=== PATIENT | male | born 1945 | race Caucasian/White ===

== ENCOUNTER 2017-10-02 05:25 | Day surgery (SDC) | payer MEDICARE, OTHER ==
[2017-10-01 15:18] LABS: HEMATOCRIT 40.5 % (42.0-54.0); HEMOGLOBIN 14.4 g/dL (13.5-17.5); MCH 33.3 pg (26.0-34.0); MCHC 35.6 g/dL (31.0-37.0); MCV 93.5 fL (80.0-100.0); MEAN PLATELET VOLUME 10.2 fL (7.4-10.4); RBC 4.33 10x6/uL (4.20-6.10); RDW 12.5 % (11.5-14.5); WBC 7.4 10x3/uL (4.8-10.8)
[~2017-10-02] VITALS: Ht 177.8 cm; Wt 86.6 kg
--- NOTE | ~2017-10-02 | OP ---
PATIENT NAME: JAMAL RECINOS MEDICAL RECORD: [id number] :[address] ADMISSION DATE: SURGEON: BARRY SHEPHERD MD DATE OF OPERATION: 10/02/2017 SURGEON: Barry Shepherd MD ANESTHESIA: MAC. ANESTHESIOLOGIST: Barry Butler MD PREOPERATIVE DIAGNOSIS: Elevated PSA 4.3. PROCEDURE: Transrectal ultrasound and prostate biopsy. FINDINGS: A 30 gram prostate, no hypoechoic areas. BLOOD LOSS: None. CLINICAL HISTORY: This is a 72-year-old male who was found to have an elevated PSA of 4.3. He has a positive family history of prostate cancer with one uncle having prostate cancer. Digital rectal examination revealed a small size prostate with no nodules. He comes today to have a transrectal ultrasound and prostate biopsy performed. He is not allergic to any medications. 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 DESCRIPTION OF PROCEDURE: The patient was given IV sedation. He was then placed into dorsal lithotomy position and prepped. The transrectal ultrasound probe was placed and we obtained prostate size measurements. Prostate size was estimated at 30 grams. We then performed sextant biopsies at least 3 cores from each sextant. Once all the biopsies were obtained, the procedure was terminated. The patient will be going home today. I will see him in followup next week to review the pathology results with him. TRANSINT:[id number] Voice Confirmation ID: [id number] DOCUMENT ID: [id number] BARRY SHEPHERD MD at 1356 CC: [id number] DICTATION DATE: 10/02/17921 CIRCULAR DISTRIBUTOR: 10/02/17 1028 [facility] 10/02/[address] [address]
[~2017-10-02 05:25] MED LIST: BENICAR20 MG PO; LIPITOR10 MG PO
[2017-10-02] MEDS ORDERED: NEXIUM20 MG PO (07:03)
[2017-10-02] MEDS ORDERED: BACTRIM DS TABL1 TAB PO (07:03)
[2017-10-02 07:06] VITALS: BP 119/75; Ht 177.8 cm; Wt 86.6 kg
== END 2017-10-02 10:25 | disposition home or self-care (01) ==
LOC: D.OPS 05:25 → D.PAN 10:00 → D.OPS 10:00 → D.PAN 10:15 → D.OPS 10:15
PROVIDERS: Anesthesiology
DX: R97.20 Elevated prostate specific antigen [PSA] (principal); Z01.812 Encounter for preprocedural laboratory examination

== ENCOUNTER → 2019-07-15 07:53 | Outpatient (CLI) | payer MEDICARE, OTHER ==
[2017-10-02 07:06] VITALS: BMI 27.4
[~2019-07-15 07:53] MED LIST changes: +BACTRIM DS TABL1 TAB PO; +NEXIUM20 MG PO
== END | disposition home or self-care (01) ==
LOC: D.HCCECHO 07-08 08:30
PROVIDERS: ATTEND Internal Medicine Cardiovascular Disease
DX: I10 Essential (primary) hypertension (principal); I20.9 Angina pectoris, unspecified

== ENCOUNTER 2019-08-11 10:58 | Outpatient (CLI) | payer MEDICARE, OTHER ==
[~2019-08-11] VITALS: Ht 177.8 cm; Wt 90.9 kg
--- NOTE | ~2019-08-11 | HEMODYNAMI ---
PATIENT:JAMAL RECINOS MEDICAL RECORD: [id number] : 41 LOCATION:[facility] ADMISSION DATE: 08/11/19 Generatedon:08/11/201914:03 Patient name: JAMAL RECINOS Patient #: [id number] SSN: [id number] : 1945 Date of study: 08/11/2019 Page: Of Hemodynamic Procedure Report Patient Data Patient Demographics Procedure consent was obtained First Name: JAMAL Gender: Male Last Name: GRISEL : 1945 [facility] Initial: [place] Age: 74 year(s) Patient #: [id number] Race: Unknown SSN: [id number] Additional ID: [id number] Contact details [address]: [address] [place] [address] State: [place] City: [place] Zip code: [address] Past Medical History Performed procedures and imaging results Date Procedure Procedure Results Comments Stress testing Positive->Intermediate with SPECT MPI risk Allergies: No known allergies Admission Admission Data Admission Date: 08/11/2019 Admission Time: 10:58 Arrival Date: 08/11/2019 Arrival Time: 0:00 Insurance Payor: Medicare Height (in.): 70 BSA: 2.09 (m2) Height (cm.): 177.8 BMI: 28.79 (kg/m2) Weight (lbs.): 200.62 Weight (kg.): 91 Lab Results Lab Result Date: 08/11/2019 Lab Result Time: 0:00 Biochemistry Name Units Result Min Max BUN mg/dl 26 --(----)-* 7 18 Creatinine mg/dl 1.6 --(----)-* 0.6 1.3 eGFR ml/min 45 *-(----)-- 90 120 NONAFRICAN CBC Name Units Result Min Max Hematocrit % 41.7 -*(----)-- 42 54 Hemoglobin g/dl 14.8 --(-*--)-- 13.5 17.5 Procedure Procedure Types Cath Procedure Diagnostic Procedure [facility] w/Coronaries Sedation Charges Moderate Sedation up to 15 minutes PCI Procedure Coronary Stent Coronary Stent Initial Hemochron ACT Test Procedure Description Procedure Date Procedure Date: 08/11/2019 Procedure Start Time: 13:25 Procedure End Time: 14:00 Procedure Staff Name Function Greg Colunga MD Performing Physician Angela Thomas RT Monitor Kierra Cardenas RT Monitor Yolanda Lara RT Scrub Tino Aguilar RT Scrub Ernie Rodriguez RN Nurse Procedure Data Cath Procedure Fluoroscopy Diagnostic fluoroscopy Total fluoroscopy Time: 0 time: 0 min min Diagnostic fluoroscopy Total fluoroscopy dose: 932 dose: 932 mGy mGy Contrast Material Contrast Material Type Amount (ml) Isovue 370 125 Entry Location Entry Primary Successful Side Size Upsize Upsize Entry Closure Succes sful Closure Location (Fr) 1 (Fr) 2 (Fr) Remarks Device Remarks Femoral Right 5 Fr 6 Fr Exoseal artery Short Estimated blood loss: 10 ml Diagnostic catheters Device Type Used For End Catheter Placement MULTIPACK Pigtail 5 Fr Procedure catheter MULTIPACK JL 4.0 5Fr Procedure catheter DIAGNOSTIC 3DRC 5Fr Procedure catheter ([id number]) Procedure Complications No complications Procedure Medications Medication Administration Route Dosage Oxygen etCO2 Nasal cannula 2 l/min Lidocaine 2% added to field 20 Heparin Flush Bag added to field 2 bags (1000units/500ml NS) 0.9% NaCl I.V. 100 ml/hr Versed I.V. 2 mg Fentanyl I.V. 50 mcg Versed I.V. 1 mg Fentanyl I.V. 50 mcg Fentanyl I.V. 50 mcg Heparin Bolus I.V. 9000 units Plavix P.O. 600 mg Hemodynamics Rest BSA: 2.09 (m2) HGB: 14.8 (g/dl) O2 Consumption: Estimated: 240.04 (ml/min) O2 Co nsumption indexed: Estimated:114.85 (ml/min/m) Heart Rate: 70 (bpm) Pressure Samples Time Site Value (mmHg) Purpose Heart Use Rate(bpm) 13:30 LV 116/0,16 Snapshot 81 13:31 AO 109/65(86) Pullback 80 13:31 LV 101/0,7 Pullback 80 Gradients Valve Time Site 1 Site 2 Mean SEP/DFP Peak To Heart Use (mmHg) (sec/min) Peak Rate (mmHg) (bpm) Aortic 13:31 LV AO 0 6 0 80 101/0,7 109/65(86) Calculations Valve P-P Mean Valve Index Valve Source Name Gradient Area Flow (cm2) Aortic 0 0 0 0 Snapshots Pre Cath Intra NCS Post Cath Vital Signs Time Heart Resp SPO2 etCO2 NIBP (mmHg) Rhythm Pain Sedation Rate (ipm) (%) (mmHg) Status Level (bpm) 13:13:38 71 20 99 0 122/88(109) NSR 0 (11) 10(A) , No pain 13:17:44 70 17 100 39.4 121/87(103) NSR 0 (11) 10(A) , No pain 13:21:51 77 16 100 37.9 119/84(101) NSR 0 (11) 10(A) , No pain 13:25:59 75 18 98 12.1 113/78(95) NSR 0 (11) 10(A) , No pain 13:30:07 71 15 94 0 99/72(91) NSR 0 (11) 9(A) , No pain 13:34:09 75 14 97 21.9 108/75(96) NSR 0 (11) 9(A) , No pain 13:38:13 87 15 99 1.5 117/82(94) NSR 0 (11) 9(A) , No pain 13:42:18 85 17 98 0 108/83(102) NSR 0 (11) 9(A) , No pain 13:46:24 83 18 99 0 110/74(95) NSR 0 (11) 9(A) , No pain 13:50:30 85 18 99 0 101/75(95) NSR 0 (11) 9(A) , No pain 13:54:32 81 19 98 34.8 98/78(91) NSR 0 (11) 10(A) , No pain 13:58:33 88 18 98 34.8 109/76(94) NSR 0 (11) 10(A) , No pain Medications Time Medication Route Dose Verified Delivered Reason Notes Effectiveness by by 13:18:31 Oxygen etCO2 2 Greg Buffie used for Nasal l/min Keanu Rodriguez window treatment installer cannula 13:18:39 Lidocaine 2% added 20ml Greg Greg for local to vial Keanu Colunga MD anesthetic field 13:18:45 Heparin Flush added 2 Greg Greg used for Bag to bags Keanu Colunga MD procedure (1000units/500ml field NS) 13:18:54 0.9% NaCl I.V. 100 Greg Buffie Per physician ml/hr Keanu Rodriguez RN 13:22:35 Versed I.V. 2 mg Greg Buffie for sedation Keanu Rodriguez RN 13:22:41 Fentanyl I.V. 50 Greg Buffie for sedation mcg Keanu Rodriguez RN 13:30:46 Versed I.V. 1 mg Greg Buffie for sedation Keanu Rodriguez RN 13:30:50 Fentanyl I.V. 50 Greg Buffie for sedation mcg Keanu Rodriguez RN 13:41:20 Fentanyl I.V. 50 Greg Buffie for sedation mcg Keanu Rodriguez RN 13:45:47 Heparin Bolus I.V. 9000 Greg Buffie for verif ied units Keanu Rodriguez RN anticoagulation with dr colunga 13:55:06 Plavix P.O. 600 Greg Buffie for mg Keanu Rodriguez RN antiplatelet therapy Procedure Log Time Note 12:51:07 Informed consent obtained and on chart 12:52:14 Procedure Status Elective Heart Cath (OP). 12:52:16 Time tracking: Regular hours (M-F 7:00 - 5:00) 12:52:18 Plan of Care:Hemodynamics will remain stable., Cardiac rhythm will remain stable., Comfort level will be maintained., Respiratory function will remain adequate., Patient/ family verbilizes understanding of procedure., Procedure tolerated without complication., Recovers from procedure without complications.. 12:53:15 H&P Date Dictated: 07/27/2019 Within 30 days and on chart., H&P Addendum completed by physician on day of procedure. (MUST COMPLETE FOR ALL OUTPATIENTS). 12:53:22 Patient allergic to No known allergies 12:53:59 Patient Weight : 200.62 lbs 12:54:12 Patient Height : 70 inches 12:54:16 Arrival Date: 08/11/2019 12:00:00 AM 12:55:18 Stress Test: yes; abnormal INFERIOR 12:56:17 Lab Result : BUN 26 mg/dl 12:56:17 Lab Result : Hemoglobin 14.8 g/dl 12:56:17 Lab Result : Hematocrit 41.7 % 12:56:17 Lab Result : Creatinine 1.6 mg/dl 12:56:17 Lab Result : eGFR NONAFRICAN 45 ml/min 12:58:31 Insurance Payor : Medicare 12:59:59 Yolanda GRIFFIN(R) (CV) sent for patient. Start room use. 13:01:01 Risk of Mortality: .3 13:01:03 Risk of blood transfusion: .1 13:01:05 Risk of TESS: 1.6 13:06:09 Patient received from Pre/Post Procedure Room to CCL 1 Alert and oriented. Tansferred to table in Supine position. 13:06:10 Warm blankets applied, and giovani hugger turned on for patient comfort. 13:06:10 Correct patient and procedure confirmed by team. 13:06:11 ECG and BP/O2 sat monitors applied to patient. 13:10:15 Is the patient allergic to Iodine/contrast media? No. 13:10:16 Was the patient premedicated? Yes 13:10:18 Is patient on blood thinner?No 13:10:20 Patient diabetic? No. 13:10:25 If diabetic: On Metformin? N/A 13:10:26 ----Pre-sedation anethsthesia assessment.---- 13:10:29 Previous problem with sedation/anesthesia? No ? 13:10:30 Snore? Yes 13:10:33 Sleep apnea? No 13:10:34 Deviated septum? No 13:10:36 Opens mouth fully? Yes 13:10:37 Sticks out tongue? Yes 13:10:43 Airway obstruction? No ? 13:10:45 Dentures? No ? 13:11:04 IV patent on arrival in left hand with 0.9% NaCl at O. 13:11:08 Patient pain scale 0/10 ?. 13:11:17 Right groin area was prepped per Dr. Colunga's request with chlora-prep and draped in sterile fashion 13:11:18 Alarms reviewed by R. N. 13:11:19 Sharps counted by scrub and verified by R.N. 13:11:26 Vital chart was started 13:11:28 Pre-procedure instructions explained to patient. 13:11:29 Pre-procedure instructions explained to patient. 13:11:31 Family in waiting room. 13:11:38 Patient NPO since Midnight. 13:12:01 Full Disclosure recording started 13:13:36 Baseline sample Acquired. 13:13:41 Rhythm: sinus rhythm 13:13:49 Use device set Femoral Dx 13:13:50 ACIST Syringe (99025) opened to sterile field. 13:13:51 Bag Decanter (2002S) opened to sterile field. 13:13:52 Medline Cath Pack ([id number]) opened to sterile field. 13:13:54 ACIST Hand Control (35047) opened to sterile field. 13:13:54 ACIST Manifold (63587) opened to sterile field. 13:13:55 DIAGNOSTIC Multipack 5Fr catheter set (SG2363) opened to sterile field. 13:13:56 Tegaderm 4 x 4 (1626W) opened to sterile field. 13:13:58 SHEATH 5FR [place] (QRU027) opened to sterile field. 13:13:58 EMERALD Guide Wire (594-012) opened to sterile field. 13:18:31 Oxygen 2 l/min etCO2 Nasal cannula was administered by Ernie Rodriguez RN; used for procedure; Verbal order read back and verified. 13:18:39 Lidocaine 2% 20ml vial added to field was administered by Greg Colunga MD; for local anesthetic; Verbal order read back and verified. 13:18:45 Heparin Flush Bag (1000units/500ml NS) 2 bags added to field was administered by Greg Colunga MD; used for procedure; Verbal order read back and verified. 13:18:54 0.9% NaCl 100 ml/hr I.V. was administered by Ernie Rodriguez RN; Per physician; Verbal order read back and verified. 13:20:15 --------ALL STOP TIME OUT------ 13:20:16 Final Timeout: patient, procedure, and site verified with staff and physician. All members of the team are in agreement. 13:20:18 Right groin site verified by team. 13:20:23 Fire Safety Assessment: A--An alcohol-based skin anteseptic being used preoperatively., C--Open oxygen or nitrous oxide is being used., D--An ESU, laser, or fiber-optic light is being used. 13:20:27 Physical assessment completed. ASA score P 2 - A patient with mild systemic disease as per Greg Colunga MD. 13:20:32 3a) 45-59 Moderately reduced kidney function. 13:20:35 Maximum allowable contrast dose (3.7 X eGFR X 0.75)125 ml. 13:20:40 Sedation plan: IV Moderate Sedation Medication:Versed, Fentanyl 13:22:12 Zero performed for pressure channel P1 13:22:35 Versed 2 mg I.V. was administered by Ernie Rodriguez RN; for sedation; Verbal order read back and verified. 13::41 Fentanyl 50 mcg I.V. was administered by Ernie Rodriguez RN; for sedation; Verbal order read back and verified. 13:23:32 Zero performed for pressure channel P1 13:25:30 Procedure started. 13:25:51 Local anesthetic to right femoral artery with Lidocaine 2% by Greg Colunga MD.INITIAL ACCESS ONLY 13:28:37 A 5 Fr sheath was inserted into the Right Femoral artery 13:29:44 A MULTIPACK Pigtail 5 Fr catheter was advanced over the wire and used for Procedure. 13:29:47 LV gram done using SHANKS 13:30:00 Injector settings: Ml/sec: 5, Volume: 15, 13:30:46 Versed 1 mg I.V. was administered by Ernie Rodriguez RN; for sedation; Verbal order read back and verified. 13:30:50 Fentanyl 50 mcg I.V. was administered by Ernie Rodriguez RN; for sedation; Verbal order read back and verified. 13:30:55 LV hemodynamics recorded. 13:31:04 EF : 55 % 13:31:55 PIGTAIL PULLDOWN FOR AORTOGRAM 13:32:05 Abdominal Aortagram was performed. 13:32:23 Catheter exchanged over wire. 13:32:54 A MULTIPACK JL 4.0 5Fr catheter was advanced over the wire and used for Procedure. 13:33:37 LCA angiography performed. 13:35:18 Catheter exchanged over wire. 13:35:46 A DIAGNOSTIC 3DRC 5Fr catheter ([id number]) was advanced over the wire and used for Procedure. 13:36:52 RCA angiography performed. 13:37:38 ACCDominant side:Right 13:38:27 Catheter removed. 13:38:58 Proceeding to intervention. 13:39:45 SHEATH 6FR [place] (IUO197) opened to sterile field. 13:39:46 INFLATOR Merit BasixCompak (RC6628) opened to sterile field. 13:39:46 TUBING High Pressure Extension Tubing (Keanu) ([id number]) opened to sterile field. 13:39:47 GUIDE 6FR XBLAD 3.5 catheter ([id number]) opened to sterile field. 13:40:04 Sheath upsized to a 6 Fr Short. 13:40:12 6 Fr XBLAD 3.5 guide catheter was inserted over the wire 13:41:20 Fentanyl 50 mcg I.V. was administered by Ernei Rodriguez RN; for sedation; Verbal order read back and verified. 13:45:27 Pre PCI Site: [place] pLAD has 75% stenosis. 13:45:37 ASAHI MINAMO 300 wire advanced. 13:45:47 Heparin Bolus 9000 units I.V. was administered by Ernie Rodriguez RN; for anticoagulation; verified with dr colunga Verbal order read back and verified. 13:47:27 Wire advanced across lesion. 13:51:49 Place stent Inflation Number: 1 A DANICA OTW 3.0 x 12 stent ([id number]) was prepped and advanced across the Prox LAD . The stent was deployed at 12 ALEX for 0:00 (min:sec) . 13:51:58 Wire removed. 13:51:59 Guide catheter removed. 13:52:03 Stent catheter was removed intact over wire. 13:52:26 EXOSEAL 6Fr (EX600) opened to sterile field. 13:52:37 Sheath removed intact; hemostasis achieved with Exoseal to the Right Femoral artery. 13:53:32 Contrast amount:Isovue 370 125ml. 13:53:35 Maximum allowable dose exceeded? No. 13:53:42 Procedure ended.(Physican Out) 13:53:56 Fluoroscopy time 00.00 minutes. 13:54:01 Flurop Dose total: 932 13:54:01 Fluoroscopy dose: 932 mGy 13:54:10 Dose Area Product 32822 mGy/cm. 13:54:15 Sharps counted by scrub and verified by R.N. 13:54:24 Post-op/insertion site Right Femoral artery dressed using a 4 x 4 and Tegaderm. 13:54:30 Post right femoral artery:stable, soft, clean and dry 13:54:31 Post Procedure Pulses reassessed and unchanged 13:54:35 Post procedure: right dorsailis pedis pulse 2+ Normal; easily identifiable; not easily obliterated. 13:54:38 Post-procedure physical assessment completed. ASA score P 2 - A patient with mild systemic disease as per Greg Colunga MD. 13:54:41 Post procedure rhythm: unchanged. 13:54:45 Estimated blood loss: 10 ml 13:54:47 Post procedure instruction explained to patient.Patient verbalizes understanding. 13:54:48 Patient needs reinforcement of post procedure teaching. 13:55:06 Plavix 600 mg P.O. was administered by Ernie Rodriguez RN; for antiplatelet therapy; Verbal order read back and verified. 13:55:38 Procedure type changed to Cath procedure, Diagnostic procedure, LHC, LHC w/Coronaries, Sedation Charges, Moderate Sedation up to 15 minutes, PCI procedure, Coronary Stent, Coronary Stent Initial, Hemochron ACT Test 13:56:53 C Findings: MVD- PCI performed (see procedure note) 13:57:04 Procedure Complication : No complications 13:57:14 Operative report dictated upon procedure completion. 13:57:15 See physician's report for complete and final results. 13:57:17 Report given to Pre/Post Procedure Room. 13:57:26 Patient transfered to Pre/Post Procedure Room with Stretcher. 13:58:31 Procedure and supply charges have been captured, reviewed, submitted and are correct. 13:59:14 ACT drawn and resulted at OUT OF RANGE seconds. (normal therapeutic range 180-240 seconds). 14:00:19 Vital chart was stopped 14:00:50 Procedure ended. 14:00:50 Full Disclosure recording stopped 14:00:57 ACC-PCI Only Patient was given prescriptions, or instructed by Greg Colunga MD to start/continue the following medications upon discharge: Plavix 14:02:30 End room use (Document Last) 14:02:43 End room use (Document Last) 14:02:59 End room use (Document Last) Intervention Summary Intervention Notes Time ActionType Lesion and Equipment Action# Pressure Duration Attributes Used 13:51:[address] stent Prox LAD DANICA OTW 3.0 1 12 00:00 x 12 stent ([id number]) Device Usage Item Name Manufacture Quantity Catalog Hospital Part Current Mini mal Lot# / Number Charge Number Stock Stock Serial# Code ACIST Syringe Acist 1 57874 951164 996586 540389 20 (33187) Medical Systems Inc Bag Decanter Microtek 1 2001S 569468 34406 227993 5 (2001S) Medical Inc. Medline Cath Medline 1 [id number] 884457 54490 654104 5 Pack ([id number]) ACIST Hand Acist 1 41728 413806 794835 755801 5 Control Medical (08617) Systems Inc ACIST Acist 1 27660 760266 714949 530105 5 Manifold Medical (49423) Systems Inc DIAGNOSTIC Cardinal 1 JQ3556 900109 66325 703448 30 Multipack 5Fr Health catheter set (PT7584) Tegaderm 4 x 3M 1 1626W 100587 457186 192158 5 4 (1626W) SHEATH 5FR Terumo 1 YTV899 982923 728550 631724 5 [place] (IZZ445) EMERALD Guide Cardinal 1 502-455 695209 633820 218796 5 Wire Health (502-455) MULTIPACK Cardinal 1 454361 5 Pigtail 5 Fr Health catheter MULTIPACK JL Cardinal 1 359645 5 4.0 5Fr Health catheter DIAGNOSTIC Cardinal 1 [id number] 188658 061754 248904 9 3DRC 5Fr Health catheter (703691Q) SHEATH 6FR Terumo 1 FLN357 564903 020124 973809 40 [place] (SWL397) INFLATOR Merit 1 CD6912 325000 412299 545340 15 Merit Medical BasixCompak (EH9646) TUBING High Merit 1 [id number] 576805 28418 706413 10 Pressure Medical Extension Tubing (Colunga) (ZU2438Q) GUIDE 6FR Cardinal 1 [id number] 888763 431627 199806 10 XBLAD 3.5 Health catheter (78570952) DANICA OTW 3.0 Medtronic 1 [id number] 328999 4973260 721417 5 [id number] x 12 stent ([id number]) EXOSEAL 6Fr Cardinal 1 EX600 714210 984709 953802 10 (EX600) Health Signature Audit [place] Stage Time Signature Unsigned Intra-Procedure 08/11/2019 Kierra Cardenas 2:02:43 PM RT(R) Intra-Procedure 08/11/2019 Buffie Rodriguez RN 2:02:59 PM Intra-Procedure 08/11/2019 Greg Colunga MD 2:03:18 PM [facility] [address] [place] [address]
[2019-08-11] MEDS ORDERED: LIPITOR20 MG PO (11:11)
[2019-08-11] MEDS ORDERED: PROTONIX40 MG PO (11:12)
[2019-08-11 11:27] VITALS: BP 120/82; Ht 177.8 cm; Wt 90.9 kg
[2019-08-11 11:37] LABS: BASOPHILS 0.4 % (0-2); EOSINOPHILS 4.8 % (0-7); HEMATOCRIT 41.7 % (42.0-54.0); HEMOGLOBIN 14.8 g/dL (13.5-17.5); IMMATURE GRANULOCYTES 0.4 % (0-5); LYMPHOCYTES 25.9 % (15-50); MCH 33.4 pg (26.0-34.0); MCHC 35.5 g/dL (31.0-37.0); MCV 94.1 fL (80.0-100.0); MEAN PLATELET VOLUME 10.3 fL (7.4-10.4); MONOCYTES 9.6 % (2-11); NEUTROPHILS 58.9 % (40-80); PLATELET COUNT 211 10x3/uL (130-400); RBC 4.43 10x6/uL (4.20-6.10); RDW 12.9 % (11.5-14.5); WBC 7.5 10x3/uL (4.8-10.8)
[2019-08-11 11:46] LABS: ANION GAP 15.1 mmol/L (8-16); CALCIUM 8.8 mg/dL (8.5-10.1); CARBON DIOXIDE 24.8 mmol/L (21.0-32.0); CHOL - HDL RATIO 3.3 ratio (2.3-4.9); CREATININE - SERUM 1.6 mg/dL (0.6-1.3); POTASSIUM - SERUM 3.9 mmol/L (3.5-5.1)
--- NOTE | 2019-08-11 14:10 | NUR ---
PATIENT ARRIVED TO ROOM 6, PLACED ON CM. VSS. RIGHT GROIN DRESSING IS CDI, NO S/S OF BLEEDING OR HEMATOMA. WILL CONTINUE TO MONITOR.
[2019-08-11] MEDS ORDERED: PLAVIX75 MG PO (14:15)
[2019-08-11] MEDS ORDERED: BAYER CHEWABLE81 MG PO (14:15)
--- NOTE | 2019-08-11 14:25 | NUR ---
PATIENT AWAKE, PHYSICIAN AT BEDSIDE. VSS ON 2L NC. RIGHT GROIN DRESSING IS CDI, NO S/S OF BLEEDING OR HEMATOMA. NO C/O PAIN, NUMBNESS, OR TINGLING. PRESENT AT BEDSIDE. NO N/V. TOLERATING PO FLUIDS.
--- NOTE | 2019-08-11 14:55 | NUR ---
PATIENT RESTING, SPOUSE AT BEDSIDE. VSS ON 1L NC. RIGHT GROIN DRESSING IS CDI, NO S/S OF BLEEDING OR HEMATOMA. NO C/O PAIN, NUMBNESS, OR TINGLING.
--- NOTE | 2019-08-11 15:10 | NUR ---
PATIENT RESTING, VSS ON 1L NC. RIGHT GROIN DRESSING IS CDI, NO S/S OF BLEEDING OR HEMATOMA.
--- NOTE | 2019-08-11 15:40 | NUR ---
PATIENT RESTING, VSS ON ROOM AIR. RIGHT GROIN DRESSING IS CDI, NO S/S OF BLEEDING OR HEMATOMA. NO C/O PAIN, NUMBNESS, OR TINGLING. NO N/V.
--- NOTE | 2019-08-11 16:10 | NUR ---
PATIENT RESTING, SPOUSE PRESENT AT BEDSIDE. VSS ON ROOM AIR. NO C/O PAIN, NUMBNESS, OR TINGLING. RIGHT GROIN DRESSING IS CDI, NO S/S OF BLEEDING OR HEMATOMA.
--- NOTE | 2019-08-11 16:40 | NUR ---
PATIENT RESTING, SPOUSE AT BEDSIDE. VSS ON ROOM AIR. NO C/O PAIN, NUMBNESS, OR TINGLING. NO N/V. RIGHT GROIN DRESSING IS CDI, NO S/S OF BLEEDING OR HEMATOMA.
--- NOTE | 2019-08-11 17:10 | NUR ---
HEAD OF BED ELEVATED TO 45 DEGREES. RIGHT GROIN DRESSING IS CDI, NO S/S OF BLEEDING OR HEMATOMA. NO C/O PAIN, NUMBNESS, OR TINGLING. PATIENT TOLERATING PO FLUIDS, NO N/V. VSS ON ROOM AIR. PATIENT VOIDED WITHOUT DIFFICULTY.
--- NOTE | 2019-08-11 17:40 | NUR ---
HEAD OF BED AT 90 DEGREES. RIGHT GROIN DRESSING IS CDI, NO S/S OF BLEEDING OR HEMATOMA. NO C/O PAIN, NUMBNESS, OR TINGLING. VSS ON ROOM AIR. NO N/V. WRITTEN AND VERBAL DISCHARGE INSTRUCTIONS AND MEDICATION EDUCATION GIVEN TO PATIENT AND SPOUSE, BOTH VOICE UNDERSTANDING. IV REMOVED.
--- NOTE | 2019-08-11 18:00 | NUR ---
PATIENT TRANSPORTED VIA WHEELCHAIR TO CAR WITH SPOUSE DRIVING, ALL BELONGINGS WITH PATIENT.
== END 2019-08-11 18:00 ==
LOC: D.CATH 10:58
PROVIDERS: ATTEND Internal Medicine Cardiovascular Disease
DX: I20.9 Angina pectoris, unspecified (principal); R94.39 Abnormal result of other cardiovascular function study; E78.5 Hyperlipidemia, unspecified; I10 Essential (primary) hypertension
CPT/HCPCS: 93458; C9600